=== PATIENT | female | born 1955 | race Caucasian/White ===

== ENCOUNTER 2016-07-03 00:56 | Emergency (ER) | payer OTHER ==
[2016-07-03] MEDS ORDERED: HYDROcod/ACETAM 5/325 MG TABLET PO STA (02:39)
[2016-07-03] MEDS ORDERED: HYDROcod/ACETAM 5/325 MG TABLET ONE (02:41)
== END 2016-07-03 04:18 | disposition home or self-care (01) ==
DX: S92.252A Displaced fracture of navicular [scaphoid] of left foot, initial encounter for closed fracture (principal); S20.211A Contusion of right front wall of thorax, initial encounter; M25.511 Pain in right shoulder; W01.0XXA Fall on same level from slipping, tripping and stumbling without subsequent striking against object, initial encounter; Z79.82 Long term (current) use of aspirin
CPT/HCPCS: 71020; 73630; 99283; A9270

== ENCOUNTER 2016-07-11 13:46 | Outpatient (CLI) | payer OTHER | END 2016-07-11 13:47 | disposition home or self-care (01) | DX: Z53.9 Procedure and treatment not carried out, unspecified reason (principal) ==

== ENCOUNTER 2016-10-30 12:05 | Outpatient (CLI) | payer OTHER ==
--- NOTE | 2016-10-31 09:20 | XRAY Report ---
LEFT KNEE, THREE VIEWS: 10/30/2016 CLINICAL HISTORY: Pain. FINDINGS: Calcification is seen in the distal quadriceps tendon. There are at least four small calc ifications noted. This suggests a potential tendinitis or old partial tear. Recommend clinical herlinda elation. If indicated, other studies such as an MRI of the left knee could be obtained. Minimal medial joint space narrowing in the left knee is seen. Patella appears normal. IMPRESSION: 1. MINOR OSTEOARTHRITIS OF THE LEFT KNEE. 2. CALCIFICATION IS SEEN IN THE DISTAL QUADRICEPS TENDON. THESE ARE NONSPECIFIC. THEY MAY INDICATE OLD PARTIAL TEAR VERSUS TENDINITIS. IF INDICATED, ADDITIONAL STUDIES SUCH AN MRI OF THE LEFT KNE E COULD BE OBTAINED FOR FURTHER EVALUATION. 3. SUGGESTION OF MINOR OSTEOARTHRITIS OF THE LEFT KNEE. JOB #: [id number] EXT JOB #:[id number]
== END 2016-10-30 12:06 | disposition home or self-care (01) ==
LOC: DI.S 12:05
PROVIDERS: ATTEND Physician Assistant
DX: M17.12 Unilateral primary osteoarthritis, left knee (principal)

== ENCOUNTER 2017-03-21 11:46 | Outpatient (CLI) | payer OTHER ==
--- NOTE | 2017-03-22 11:08 | XRAY Report ---
LEFT HIP AND PELVIS: 03/21/2017 COMPARISON: None. INDICATION: Pain for two months without known injury. TECHNIQUE: Two views of the left hip and pelvis. FINDINGS: Normal alignment. No evidence of acute fracture. No degenerative changes. IMPRESSION: NEGATIVE HIP AND PELVIS. JOB #: [id number] EXT JOB #: [id number] [facility]
== END 2017-03-21 11:47 | disposition home or self-care (01) ==
LOC: DI 11:46
PROVIDERS: ATTEND Physician Assistant
DX: M25.552 Pain in left hip (principal)

== ENCOUNTER 2017-03-21 11:50 | Outpatient (CLI) | payer OTHER ==
--- NOTE | 2017-03-29 08:46 | Mammography Report ---
DATE OF SERVICE: 03/21/2017 EXAMINATION: Bilateral digital screening mammogram 03/21/2017. CLINICAL INDICATION: A 62-year-old with personal history of left breast cancer, status post mastectomy and TRAM flap reconstruction, family history of breast cancer. COMPARISON: 03/15/2016, 01/08/2015, 11/13/2013. TECHNIQUE: Routine CC and MLO projections were obtained of the breasts. FINDINGS: The right breast demonstrate scattered fibroglandular densities. Postoperative changes of the left TRAM flap reconstruction are stable. A few coarse, typically benign calcifications are present. No suspicious masses, clustered microcalcifications, or regions of architectural distortion are identified. IMPRESSION: Benign findings. RECOMMENDATIONS: Routine annual screening unless otherwise clinically indicated. BIRADS 2 - Benign findings. STANDARD QUALIFYING STATEMENTS 1. This examination was reviewed with the aid of Computed-Aided Detection (CAD). 2. A negative or benign imaging report should not delay biopsy if clinically suspicious findings are present. Consider surgical consultation if warranted. More than 5% of cancers are not identified by imaging. 3. Dense breasts may obscure an underlying neoplasm. TD: 03/27/2017 17:00 MTDD
== END 2017-03-21 11:51 | disposition home or self-care (01) ==
LOC: DI 11:50
PROVIDERS: ATTEND Physician Assistant
DX: Z12.31 Encounter for screening mammogram for malignant neoplasm of breast (principal); Z85.3 Personal history of malignant neoplasm of breast; Z80.3 Family history of malignant neoplasm of breast
CPT/HCPCS: 77067

== ENCOUNTER 2018-03-05 14:52 | Emergency (ER) | payer OTHER ==
--- NOTE | 2018-03-05 15:11 | ED Physician Documentation ---
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 : None HEENT: None Psych: Bipolar disorder Musculoskeletal: None Derm: None - Past Surgical History Past Surgical History: Yes Ortho: Spine surgery, Other /TURBOGENERATOR OPERATOR: Mastectomy - Present Medications Home Medications: Ambulatory Orders Medication Instructions Recorded Confirmed Levothyroxine [Synthroid] 75 mcg PO QDAC 03/24/14 01/30/15 Simvastatin 20 mg PO DAILY 03/24/14 01/30/15 Venlafaxine HCl [Venlafaxine HCl 225 mg PO DAILY 03/24/14 01/30/15 ER] clonazePAM [Clonazepam] 1.0 mg PO DAILY 03/24/14 01/30/15 lamoTRIgine [LaMICtal] 300 mg PO DAILY 03/24/14 01/30/15 Aspirin [Aspir 81] 81 mg PO DAILY 01/30/15 01/30/15 Gabapentin [Neurontin] 200 mg PO TID PRN 01/30/15 01/30/15 buPROPion [Wellbutrin Xl] 450 mg PO DAILY 01/30/15 01/30/15 - Allergies Allergies/Adverse Reactions: Allergies Allergy/AdvReac Type Severity Reaction Status Date / Time No Known Drug Allergies Allergy Verified 03/05/18 15:00 - Social History Does the pt smoke?: No Smoking Status: Never smoker Does the pt drink ETOH?: Yes Does the pt have substance abuse?: No - Immunizations Immunizations are current?: Yes - POLST Patient has POLST: No Results - Vitals Vitals: Vital Signs - 24 hr 03/05/18 15:04 Blood Pressure 125/80 [Left] Oxygen O2 Source Room air
--- NOTE | 2018-03-05 16:07 | ED Physician Documentation ---
PD HPI CHEST PAIN - Stated complaint Stated Complaint: CHEST PAINS - Chief complaint Chief Complaint: Cardiac - History obtained from History obtained from: Patient - History of Present Illness Timing - onset: How many days ago (3) Timing - duration: Days (3) Timing - details: Gradual onset, Intermittant Pain level max: 7 Pain level now: 0 Quality: Tightness Location: Other (Upper chest) Radiation: Abdominal Improved by: Nothing. No: Rest Worsened by: Other (Nothing) Associated symptoms: No: Shortness of air, Diaphoresis, Nausea, Vomiting, General Weakness, Palpitations, Cough Similar symptoms before: Has not had sx before Recently seen: Not recently seen - Additional information Additional information: 68-year-old female with history of high cholesterol here with complaint of upper chest discomfort in the past 3 days. Patient states she has sensation of of pressure that is 6/10 but currently 0. She claims to be radiates from mid upper chest to her epigastric area. She states it lasts 20 seconds. She denies any reciprocating factors. Denies any other associated symptoms. Denies any trauma or travel or recent illness. Review of Systems Ten Systems: 10 systems reviewed and negative Constitutional: denies: Fever Cardiac: reports: Chest pain / pressure. 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 : None HEENT: None Psych: Bipolar disorder Musculoskeletal: None Derm: None - Past Surgical History Past Surgical History: Yes Ortho: Spine surgery, Other /CERTIFIED REGISTERED NURSE PRACTITIONER: Mastectomy - Present Medications Home Medications: Ambulatory Orders Medication Instructions Recorded Confirmed Levothyroxine [Synthroid] 75 mcg PO QDAC 03/24/14 01/30/15 RX: Simvastatin 20 mg PO DAILY 03/24/14 01/30/15 RX: clonazePAM [Clonazepam] 1.0 mg PO DAILY 03/24/14 01/30/15 Venlafaxine HCl [Venlafaxine HCl 225 mg PO DAILY 03/24/14 01/30/15 ER] lamoTRIgine [LaMICtal] 300 mg PO DAILY 03/24/14 01/30/15 Aspirin [Aspir 81] 81 mg PO DAILY 01/30/15 01/30/15 Gabapentin [Neurontin] 200 mg PO TID PRN 01/30/15 01/30/15 buPROPion [Wellbutrin Xl] 450 mg PO DAILY 01/30/15 01/30/15 - Allergies Allergies/Adverse Reactions: Allergies Allergy/AdvReac Type Severity Reaction Status Date / Time No Known Drug Allergies Allergy Verified 03/05/18 15:00 - Social History Does the pt smoke?: No Smoking Status: Never smoker Does the pt drink ETOH?: Yes Does the pt have substance abuse?: No - Immunizations Immunizations are current?: Yes - POLST Patient has POLST: No PD ED PE NORMAL - Vitals Vital signs reviewed: Yes - General General: Alert and oriented X 3, No acute distress, Well developed/nourished - HEENT HEENT: Moist mucous membranes, Pharynx benign - Neck Neck: Supple, no meningeal sign, No adenopathy - Cardiac Cardiac: RRR, No murmur - Respiratory Respiratory: No respiratory distress, Clear bilaterally - Abdomen Abdomen: Normal bowel sounds, Soft, Non tender, Non distended - Back Back: No CVA TTP - Derm Derm: Normal color, Warm and dry - Extremities Extremities: No deformity - Neuro Neuro: Alert and oriented X 3 - Psych Psych: Normal mood, Normal affect Results - Vitals Vitals: Vital Signs - 24 hr 03/05/18 03/05/18 15:04 17:43 Heart Rate 88 Respiratory 24 Rate Blood Pressure 117/84 H Blood Pressure 125/80 [Left] O2 Saturation 97 Oxygen O2 Source Room air - EKG (time done) 1502 Rate: Rate (enter#) Rhythm: NSR [place]: Normal Intervals: Normal PA QRS: Normal Ischemia: Other (Nonspecific flat T's) - Labs Labs: Laboratory Tests 03/05/18 03/05/18 03/05/18 15:20 15:20 15:20 WBC 7.3 RBC 4.50 Hgb 14.0 Hct 42.3 MCV 93.9 MCH 31.0 MCHC 33.0 RDW 13.7 Plt Count 213 MPV 7.6 L Neut # (Auto) 5.1 Lymph # (Auto) 1.6 [place] # (Auto) 0.4 Eos # (Auto) 0.1 Baso # (Auto) 0.0 Absolute Nucleated RBC 0.00 Nucleated RBC % 0.0 D-Dimer Sodium 136 Potassium 3.5 Chloride 111 Carbon Dioxide 19 L Anion Gap 6.0 BUN 13 Creatinine 1.0 Estimated GFR (MDRD) 56 L Glucose 108 H Calcium 8.2 L Total Bilirubin 0.5 AST 27 ALT 40 Alkaline Phosphatase 57 Troponin I < 0.04 B-Natriuretic Peptide Total Protein 6.8 Albumin 4.2 Globulin 2.6 Albumin/Globulin Ratio 1.6 Lipase 39 03/05/18 03/05/18 03/05/18 15:20 15:20 17:32 WBC RBC Hgb Hct MCV MCH MCHC RDW Plt Count MPV Neut # (Auto) Lymph # (Auto) [place] # (Auto) Eos # (Auto) Baso # (Auto) Absolute Nucleated RBC Nucleated RBC % D-Dimer < 200.0 L Sodium Potassium Chloride Carbon Dioxide Anion Gap BUN Creatinine Estimated GFR (MDRD) Glucose Calcium Total Bilirubin AST ALT Alkaline Phosphatase Troponin I < 0.04 B-Natriuretic Peptide 37 Total Protein Albumin Globulin Albumin/Globulin Ratio Lipase PD MEDICAL DECISION MAKING - ED course Complexity details: re-evaluated patient, considered differential (ACS, pneumonia, PE, thoracic dissecting aneurysm, GERD, unstable angina), d/w patient ED course: 1723 patient denies any chest pain or shortness of breath. Inform of test results. Agreed to second heart enzyme. 1843 patient wants to go home now. second negative heart enzymes. Denies chest pain or shortness of breath. Discussed outpatient follow-up with a stress test through her primary doctor. Expressed understanding of outpatient workup.Heart score 1. Departure - Departure Disposition: 01 Home, Self Care Clinical Impression: Atypical chest pain Condition: Stable Instructions: ED Chest Pain Atypical Unkn Cause Comments: Call your primary doctor tomorrow for reevaluation and to schedule an outpatient stress test. If worse return to the emergency room.
[2018-03-05 16:18] LABS: BASOPHILS % (AUTO) 0.6 %; EOSINOPHILS # (AUTO) 0.1 10^3/uL (0.0-0.7); LYMPHOCYTES # (AUTO) 1.6 10^3/uL (1.5-3.5); LYMPHOCYTES % (AUTO) 21.7 %; MEAN CORPUSCULAR VOLUME 93.9 fL (81.0-99.0); MEAN PLATELET VOLUME 7.6 fL (7.9-10.8); MONOCYTES # (AUTO) 0.4 10^3/uL (0.0-1.0); MONOCYTES % (AUTO) 5.7 %; NEUTROPHILS # (AUTO) 5.1 10^3/uL (1.5-6.6); PLT - PLATELET COUNT 213 10^3/uL (130-450); RED CELL DISTRIBUTION WIDTH 13.7 % (12.0-15.0); WHITE BLOOD COUNT 7.3 x10^3/uL (4.8-10.8)
[2018-03-05 16:36] LABS: ALBUMIN 4.2 g/dL (3.2-5.5); ALBUMIN/GLOBULIN RATIO 1.6 (1.0-2.2); BILIRUBIN,TOTAL 0.5 mg/dL (0.2-1.0); CALCIUM 8.2 mg/dL (8.5-10.3); TOTAL PROTEIN 6.8 g/dL (6.7-8.2)
--- NOTE | 2018-03-05 16:37 | XRAY Report ---
Reason: chest pain Procedure Date: 03/05/2018 Accession Number: [id number] / [id number] Procedure: XR - Chest 1 View X-Ray CPT Code: 86256 FULL RESULT: EXAM: CHEST RADIOGRAPHY EXAM DATE: 03/05/2018 04:19 PM. CLINICAL HISTORY: Chest pain. COMPARISON: Chest 07/03/2016. TECHNIQUE: 1 view. FINDINGS: Lungs/Pleura: No focal opacities evident. No pleural effusion. No pneumothorax. Mediastinum: Within exam limitations, the cardiomediastinal contour is normal. Old healed left clavicle fracture is noted. There are left axillary clips. IMPRESSION: No evidence of acute thoracic process RADIA
[2018-03-05] MEDS: ASPIRIN CHEW 81 MG TABLET PO STA (17:42)
[2018-03-05 18:53] VITALS: BP 129/86
== END 2018-03-05 18:53 | disposition home or self-care (01) ==
LOC: ED 14:52
DX: R07.89 Other chest pain (principal); Z79.82 Long term (current) use of aspirin; R94.31 Abnormal electrocardiogram [ECG] [EKG]
CPT/HCPCS: 36415; 71045; 80053; 83690; 83880; 84484; 85025; 85379; 93005; 99283; A9270

== ENCOUNTER 2018-04-12 14:02 | Outpatient (CLI) | payer OTHER ==
--- NOTE | 2018-04-15 08:33 | Mammography Report ---
Reason: ENCOUNTER FOR SCREENING MAMMOGRAM FOR MALIGNANT NE Procedure Date: 04/12/2018 Accession Number: [id number] / [id number] Procedure: ANTOINETTE - Screening Mammo w/Noel CPT Code: FULL RESULT: EXAM: Screening Mammo w/Noel DATE: 04/12/2018 2:34 PM CLINICAL HISTORY: Screening encounter. History of melena. He and personal history of left breast cancer status post mastectomy with TRAM flap reconstruction at the age of 40. Family history of breast cancer in the mother at age 60 and a sister at age 45. TECHNIQUE: Bilateral CC and MLO views were obtained. A left laterally exaggerated CC view was obtained COMPARISON: 03/21/2017 through 11/13/2013. FINDINGS: The breasts demonstrate diffuse fatty replacement bilaterally. Postsurgical changes in the left breast are stable. No suspicious masses, clustered microcalcifications, or regions of architectural distortion are identified. IMPRESSION: Benign findings RECOMMENDATION: Routine annual screening unless otherwise clinically indicated. BIRADS CATEGORY 2: Benign findings STANDARD QUALIFYING STATEMENTS: 1. This examination was not reviewed with the aid of Computer-Aided Detection (CAD). 2. A negative or benign imaging report should not preclude biopsy if clinically suspicious findings are present. 3. Dense breasts may obscure an underlying neoplasm. 4. This examination was reviewed with the aid of 3D breast imaging (tomosynthesis).
== END 2018-04-12 14:03 | disposition home or self-care (01) ==
LOC: DI 14:02
PROVIDERS: ATTEND Physician Assistant
DX: Z12.31 Encounter for screening mammogram for malignant neoplasm of breast (principal); Z85.3 Personal history of malignant neoplasm of breast; Z80.3 Family history of malignant neoplasm of breast
CPT/HCPCS: 77063; 77067

== ENCOUNTER 2018-04-12 14:02 | Outpatient (CLI) | payer OTHER ==
--- NOTE | 2018-04-15 09:35 | DEXA Report ---
Reason: OSTEOPOROSIS WITHOUT CURRENT PATHOLOGICAL FRACTURE Procedure Date: 04/12/2018 Accession Number: [id number] / [id number] Procedure: DEX - Dexa Spine and/or Hip CPT Code: FULL RESULT: EXAM: Dexa Spine and/or Hip DATE: 04/12/2018 2:46 PM CLINICAL HISTORY: OSTEOPOROSIS WITHOUT CURRENT PATHOLOGICAL FRACTURE TECHNIQUE: Dual energy x-ray absorptiometry (DXA) was performed on a imbookin (Pogby) System. Regions measured are the AP Spine, femoral neck, and if needed forearm. COMPARISON: None. In accordance with the International Society for Clinical Densitometry (ISCD) guidelines, data from previous exams may be reanalyzed using current recommendations and techniques. This is done to allow a more accurate basis for comparison with the current study. FINDINGS: The data for the lumbar spine is as follows: BMD (g/cm/cm) T-SCORE Z-SCORE REGION L1 1.018 -0.9 0.1 L2 1.064 -1.1 -0.1 L3 1.067 -1.1 -0.1 L4 1.350 1.3 2.3 TOTAL 1.143 -0.3 0.7 NOTE: All evaluable vertebrae are used for classification The data for the hip is as follows: BMD (g/cm/cm) T-SCORE Z-SCORE REGION Neck 0.912 -0.9 0.2 TOTAL 0.981 -0.2 0.6 NOTE: The femoral neck or total proximal femur, whichever is lowest, is used for classification. IMPRESSION: THE WHO CLASSIFICATION BASED ON THE INTERNATIONAL REFERENCE STANDARD IS NORMAL. THE FRACTURE RISK IS NOT INCREASED. RECOMMENDATION: Patients with diagnosis of osteoporosis or osteopenia should have regular bone mineral density assessment. For those eligible for Medicare, routine testing is allowed once every 2 years. Testing frequency can be increased for patients who have rapidly progressing disease or for those who are receiving medical therapy to restore bone mass. COMMENT: World Health Organization (WHO) definitions for osteoporosis and osteopenia: NORMAL BMD: T-score at -1.0 or higher, fracture risk is low OSTEOPENIA BMD: T-score between -1.0 and -2.5, fracture risk is increased. OSTEOPOROSIS BMD: T-score at -2.5 or lower, fracture risk is high. National Osteoporosis Foundation recommends: 1. Obtain adequate dietary calcium (at least 1200 mg per day) and vitamin D (400-800 international units per day). 2. Participate, as appropriate, in regular weightbearing and muscle-strengthening exercise. 3. Avoid tobacco use and reduce alcohol and caffeine intake. 4. For more detailed information see the website at www.NOF.org.
== END 2018-04-12 14:03 | disposition home or self-care (01) ==
LOC: DI 14:02
PROVIDERS: ATTEND Physician Assistant
DX: M81.0 Age-related osteoporosis without current pathological fracture (principal)
CPT/HCPCS: 77080

== ENCOUNTER 2019-02-11 13:57 | Outpatient (CLI) | payer OTHER ==
--- NOTE | 2019-02-11 16:57 | XRAY Report ---
Reason: UNSPECIFIED INJURY OF RIGHT SHOULDER AND UPPER ARM Procedure Date: 02/11/2019 Accession Number: [id number] / [id number] Procedure: XRS - Shoulder 3 View RT CPT Code: FULL RESULT: EXAM: RIGHT SHOULDER RADIOGRAPHY EXAM DATE: 02/11/2019 02:18 PM. CLINICAL HISTORY: UNSPECIFIED INJURY OF RIGHT SHOULDER AND UPPER ARM. COMPARISON: CHEST 1 VIEW 03/05/2018 4:10 PM. TECHNIQUE: 3 views. FINDINGS: Bones: Normal. No fracture or bone lesion. Joints: The glenohumeral and acromioclavicular joints are normal. Soft tissues: The visualized hemithorax is unremarkable. No soft tissue swelling. IMPRESSION: Normal shoulder radiography. RADIA
== END 2019-02-11 13:58 | disposition home or self-care (01) ==
LOC: DI.S 13:57
PROVIDERS: ATTEND Physician Assistant
DX: S49.91XA Unspecified injury of right shoulder and upper arm, initial encounter (principal)

== ENCOUNTER 2019-05-23 11:04 | Outpatient (CLI) | payer OTHER ==
--- NOTE | 2019-06-03 14:05 | Mammography Report ---
Reason: TRAM FLAP LEFT SIDE ROUTINE MAMMO Procedure Date: 05/23/2019 Accession Number: [id number] / [id number] Procedure: ANTOINETTE - Screening Mammo Right w/Noel CPT Code: Final Report FULL RESULT: EXAM: Screening Mammo Right w/Noel DATE: 05/23/2019 11:53 AM CLINICAL HISTORY: Screening encounter. History of nulliparity. Personal history of breast cancer status post left mastectomy. Family history of breast cancer in the mother at the age of 75 and a sister at the age of 45. TECHNIQUE: (R) - Right CC and MLO views were obtained. COMPARISON: 04/04/2018 through 11/13/2013. PARENCHYMAL PATTERN: (A) - The breast(s) demonstrate(s) scattered fibroglandular densities. FINDINGS: There are no suspicious masses, calcifications, or areas of distortion. IMPRESSION: Negative examination. BI-RADS category 1. RECOMMENDATION: (ANNUAL) - Recommend routine annual screening mammography. BI-RADS CATEGORY: (1) - Negative. STANDARD QUALIFYING STATEMENTS: 1. This examination was not reviewed with the aid of Computer-Aided Detection (CAD). 2. A negative or benign imaging report should not preclude biopsy if clinically suspicious findings are present. 3. Dense breasts may obscure an underlying neoplasm. 4. This examination was reviewed with the aid of 3D breast imaging (tomosynthesis).
== END 2019-05-23 11:05 | disposition home or self-care (01) ==
LOC: DI 11:04
DX: Z12.31 Encounter for screening mammogram for malignant neoplasm of breast (principal); Z85.3 Personal history of malignant neoplasm of breast; Z90.12 Acquired absence of left breast and nipple; Z80.3 Family history of malignant neoplasm of breast
CPT/HCPCS: 77063

== ENCOUNTER 2019-10-30 13:45 | Outpatient (CLI) | payer OTHER | END 2019-10-30 13:46 | disposition critical access hospital (66) | LOC: EMS 13:45 | PROVIDERS: ATTEND Surgery | DX: M54.9 Dorsalgia, unspecified (principal); R51 Headache; V80.010A Animal-rider injured by fall from or being thrown from horse in noncollision accident, initial encounter; Y93.52 Activity, horseback riding | CPT/HCPCS: A0425; A0429 ==

== ENCOUNTER 2019-10-30 13:57 | Emergency (ER) | payer OTHER ==
--- NOTE | 2019-10-30 14:12 | ED Physician Documentation ---
History of Present Illness - Stated complaint Stated Complaint: FALL - Chief complaint Chief Complaint: General - History obtained from History obtained from: Patient, EMS - Additonal information Additional information: Patient is brought to the emergency department by EMS after being bucked off her horse onto a grassy surface unpacked ground. Patient states that she landed on her left side and did hit her head, though she did not lose consciousness. She states she has pain wrapping around her flanks and pelvic area. She denies any pain otherwise in her abdomen. No chest pain. No pain that feels like it is in her spine, including no neck pain. Patient denies any lightheadedness or dizziness. She states she takes aspirin and is on a medication for bipolar disorder, but otherwise, is healthy. Patient states incident happened around 1230 this afternoon. Review of Systems Ten Systems: 10 systems reviewed and negative Constitutional: reports: Reviewed and negative Eyes: reports: Reviewed and negative Ears: reports: Reviewed and negative Nose: reports: Reviewed and negative Throat: reports: Reviewed and negative Cardiac: reports: Reviewed and negative Respiratory: reports: Reviewed and negative GI: reports: Reviewed and negative : reports: Reviewed and negative Skin: reports: Reviewed and negative Musculoskeletal: reports: Back pain Neurologic: reports: Headache, Head injury Psychiatric: reports: Reviewed and negative Endocrine: reports: Reviewed and negative Immunocompromised: reports: Reviewed and negative PD PAST MEDICAL HISTORY - Past Medical History Cardiovascular: High cholesterol Respiratory: None Neuro: None Endocrine/Autoimmune: HyPOthyroidism GI: Colon polyps EXCHANGE MECHANIC: Breast cancer : None HEENT: None Psych: Bipolar disorder Musculoskeletal: None Derm: None - Past Surgical History Past Surgical History: Yes Ortho: Spine surgery, Other /EXCHANGE MECHANIC: Mastectomy - Present Medications Home Medications: Ambulatory Orders Medication Instructions Recorded Confirmed Levothyroxine [Synthroid] 75 mcg PO QDAC 03/24/14 01/30/15 Simvastatin 20 mg PO DAILY 03/24/14 01/30/15 Venlafaxine HCl [Venlafaxine HCl 225 mg PO DAILY 03/24/14 01/30/15 ER] clonazePAM [Clonazepam] 1.0 mg PO DAILY 03/24/14 01/30/15 lamoTRIgine [LaMICtal] 300 mg PO DAILY 03/24/14 01/30/15 Aspirin [Aspir 81] 81 mg PO DAILY 01/30/15 01/30/15 Gabapentin [Neurontin] 200 mg PO TID PRN 01/30/15 01/30/15 buPROPion [Wellbutrin Xl] 450 mg PO DAILY 01/30/15 01/30/15 Cyclobenzaprine [Flexeril] 10 mg PO TID PRN #20 tablet 10/30/19 Hydrocodone/Acetaminophen 1 - 2 each PO Q6H PRN #14 tablet 10/30/19 [Hydrocodon-Acetaminophen 5-325] - Allergies Allergies/Adverse Reactions: Allergies Allergy/AdvReac Type Severity Reaction Status Date / Time No Known Drug Allergies Allergy Verified 03/05/18 15:00 - Social History Does the pt smoke?: No Smoking Status: Never smoker Does the pt drink ETOH?: Yes Does the pt have substance abuse?: No - Immunizations Immunizations are current?: Yes - POLST Patient has POLST: No PD ED PE NORMAL - Vitals Vital signs reviewed: Yes - General General: Alert and oriented X 3, No acute distress - HEENT HEENT: PERRL, EOMI, Moist mucous membranes, Other (Patient has a 4 cm diameter area on her right left parietal scalp with approximately 1 cm of elevation. 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, No motor deficit, No sensory deficit, Normal speech Eye Opening: Spontaneous Motor: Obeys Commands Verbal: Oriented GCS Score: 15 - Psych Psych: Normal mood, Normal affect Results - Vitals Vitals: Oxygen O2 Source Room air - Labs Labs: Laboratory Tests 10/30/19 10/30/19 14:35 14:35 WBC 8.1 RBC 4.44 Hgb 14.3 Hct 43.3 MCV 97.5 MCH 32.2 H MCHC 33.0 RDW 12.8 Plt Count 187 MPV 9.3 Neut # (Auto) 6.0 Lymph # (Auto) 1.5 [place] # (Auto) 0.4 Eos # (Auto) 0.1 Baso # (Auto) 0.1 Absolute Nucleated RBC 0.00 Nucleated RBC % 0.0 Sodium 139 Potassium 3.9 Chloride 108 Carbon Dioxide 23 Anion Gap 8.0 BUN 22 H Creatinine 1.0 Estimated GFR (MDRD) 56 L Glucose 103 H Calcium 8.7 Total Bilirubin 0.6 AST 27 ALT 28 Alkaline Phosphatase 49 Total Protein 7.2 Albumin 5.0 Globulin 2.2 Albumin/Globulin Ratio 2.3 H Lipase 53 H - Rads (name of study) CT abd pelvis Radiology: Final report received, EMP read indepedently, See rad report (Final radiologist interpretation: No organ injury, free fluid, or free air. No pelvic fracture or dislocation. Compression deformities of T7-8, [address] head Radiology: Final report received, EMP read indepedently, See rad report (Negative) CT c-spine Radiology: Final report received, EMP read indepedently, See rad report PD MEDICAL DECISION MAKING - ED course Complexity details: reviewed results, re-evaluated patient, considered differential, d/w patient ED course: The patient was worked up with CTs of the head, C-spine, and abdomen/pelvis. The patient CT scans were generally unremarkable, with the exception of compression fractures of indeterminate age at a number of levels of the T-spine and L-spine. The patient did not have any tenderness on her spine, but did have increasing sensation of pain throughout her back and pelvis. She was initially given 0.5 mg of Dilaudid IV, followed by 1 mg of Dilaudid. The patient was still having significant discomfort and so she was ultimately given 30 mg of Toradol IV and 10 mg of morphine, after which she did report feeling much better. I discussed with the patient and her the findings on CT scan. 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 It is unclear whether the compression fractures are associated with this injury or a prior one. We have discussed that these are stable fractures, which may heal completely or become chronic. We have discussed the need to avoid high impact activities such as horseback riding with trotting, and to minimize the risk of a fall which would exacerbate the current fractures. Patient should follow-up with her primary care physician. We have discussed home management of the symptoms, as well as usual indications for return. Departure - Departure Disposition: 01 Home, Self Care Clinical Impression: Animal-rider injured by fall from or being thrown from horse in noncollision accident, initial encounter Compression fx, thoracic spine Qualifiers: Encounter type: initial encounter Thoracic vertebra fracture level: unspecified thoracic vertebra Qualified Code(s): S22.000A - Wedge compression fracture of unspecified thoracic vertebra, initial encounter for closed fracture Condition: Stable Instructions: ED Low Back Pain Injury, ED Fx Comp Vertebral Prescriptions: Cyclobenzaprine [Flexeril] 10 mg PO TID PRN #20 tablet PRN Reason: Spasms Hydrocodone/Acetaminophen [Hydrocodon-Acetaminophen 5-325] 1 - 2 each PO Q6H PRN #14 tablet PRN Reason: pain Comments: The CT scans of your head and neck did not show any internal injuries or fractures. The CT scan of your abdomen and pelvis showed several compression fractures of your thoracic spine, though the age of these fractures is unclear. Many times these fractures become chronic and show chronically as compression fractures on imaging studies. A compression fracture is a stable fracture which does not put you at risk for paralysis. In general, your body will heal he is on its own, but you may have some pain associated with this. You also most likely of strained the connecting ligaments throughout your spine and pelvis which can cause some the pain that you have been having. There is no evidence of internal organ injury or internal bleeding. Please take the medication prescribed, as needed for discomfort, along with ibuprofen to help with inflammation. You may take up to 800 mg of ibuprofen every 8 hours, as needed. Please follow-up with your primary care physician if you do not feel that you have made any improvement in the next 1 to 2 weeks. Discharge Date/Time: 10/30/19 17:24
[2019-10-30] MEDS ORDERED: IOVERSOL 320 100 ML VIAL IVP ONE ×2 (14:20→15:42)
[2019-10-30] MEDS ORDERED: HYDROmorphone 1 MG/ML CARPUJECT IVP STA ×2 (14:24→15:04)
[2019-10-30 14:40] LABS: BASOPHILS # (AUTO) 0.1 10^3/uL (0.0-0.1); BASOPHILS % (AUTO) 0.6 %; EOSINOPHILS # (AUTO) 0.1 10^3/uL (0.0-0.7); EOSINOPHILS % (AUTO) 0.9 %; HGB - HEMOGLOBIN 14.3 g/dL (12.0-16.0); LYMPHOCYTES # (AUTO) 1.5 10^3/uL (1.5-3.5); LYMPHOCYTES % (AUTO) 17.8 %; MEAN CORPUSCULAR HEMOGLOBIN 32.2 pg (27.0-31.0); MEAN CORPUSCULAR VOLUME 97.5 fL (81.0-99.0); MEAN PLATELET VOLUME 9.3 fL (7.9-10.8); MONOCYTES # (AUTO) 0.4 10^3/uL (0.0-1.0); MONOCYTES % (AUTO) 5.3 %; NEUTROPHILS % (AUTO) 73.7 %; PLT - PLATELET COUNT 187 10^3/uL (130-450); RED BLOOD COUNT 4.44 10^6/uL (4.20-5.40); RED CELL DISTRIBUTION WIDTH 12.8 % (12.0-15.0); WHITE BLOOD COUNT 8.1 x10^3/uL (4.8-10.8)
[2019-10-30 14:58] LABS: ALBUMIN/GLOBULIN RATIO 2.3 (1.0-2.2); BILIRUBIN,TOTAL 0.6 mg/dL (0.2-1.0); CALCIUM 8.7 mg/dL (8.5-10.3); TOTAL PROTEIN 7.2 g/dL (6.7-8.2)
[2019-10-30] MEDS ORDERED: KETOROLAC 30 MG/ML VIAL IVP STA (15:45)
--- NOTE | 2019-10-30 15:46 | CT Report ---
PROCEDURE: HEAD WO INDICATIONS: Trauma, thrown from horse, scalp injury TECHNIQUE: Noncontrast 4.5 mm thick angled axial sections acquired from the foramen magnum to the vertex. For r adiation dose reduction, the following was used: automated exposure control, adjustment of mA and/or kV according to patient size. COMPARISON: None. FINDINGS: Image quality: Excellent. CSF spaces: Basal cisterns are patent. No extra-axial fluid collections. Ventricles are normal in size and shape. Brain: No midline shift. No intracranial masses or hemorrhage. Mckeon-white matter interface is norm al. Skull and face: Calvarium and visualized facial bones are intact, without suspicious lesions. There is a left parietal region mixed density scalp hematoma. Sinuses: Visualized sinuses and mastoids are clear. IMPRESSION: No acute intracranial finding. Left parietal scalp hematoma. Reviewed by: Jimmy Dwyer MD on 10/30/2019 3:45 PM PDT Approved by: Jimmy Dwyer MD on 10/30/2019 3:45 PM PDT Station ID: [id number]
--- NOTE | 2019-10-30 15:49 | CT Report ---
PROCEDURE: CERVICAL SPINE WO INDICATIONS: Trauma, thrown from horse, head injury TECHNIQUE: Noncontrast 3 mm thick sections acquired from the skull base to the T4 level. Sagittal and coronal r eformats were then constructed. For radiation dose reduction, the following was used: automated exp osure control, adjustment of mA and/or kV according to patient size. COMPARISON: FINDINGS: Image quality: Excellent. Bones: No cervical spine fracture, dislocation, or subluxation. Facet joints are congruent with multi level degenerative changes. Intervertebral disc spaces are congruent with multilevel degenerative elliot nges. Vertebral body heights maintained. Soft tissues: Unenhanced prevertebral and paraspinous soft tissues unremarkable. No unenhanced eviden ce of epidural hematoma. Included portions of the lung apices and apical pleural spaces are clear. IMPRESSION: No CT evidence of acute or metastatic cervical spine injury. Reviewed by: Jimmy Dwyer MD on 10/30/2019 3:47 PM PDT Approved by: Jimmy Dwyer MD on 10/30/2019 3:47 PM PDT Station ID: [id number]
--- NOTE | 2019-10-30 16:03 | CT Report ---
PROCEDURE: Abdomen/Pelvis W INDICATIONS: thrown from horse, pelvic pain CONTRAST: IV CONTRAST: Optiray 320 ml: 100 PO CONTRAST: *NO PO CONTRAST TECHNIQUE: After the administration of oral and intravenous contrast, 5 mm thick sections acquired from the diap hragms to the symphysis. 5 mm thick coronal and sagittal reformats were acquired. For radiation dos e reduction, the following was used: automated exposure control, adjustment of mA and/or kV accordin g to patient size. COMPARISON: Pelvic radiograph dated 03/21/2017. FINDINGS: Image quality: Excellent. ABDOMEN: Lung bases: Bilateral dependent atelectasis is seen. Heart size is normal. Solid organs: Liver and spleen are normal in size and enhancement. Well-circumscribed 5 mm round hy podense area in the right hepatic lobe anterior segment is seen and likely represent small hepatic cy st. Gallbladder is within normal limits. Biliary system is non dilated. Pancreas enhances normally. No right adrenal nodules. 2.6 x 1.7 cm predominantly fat density left adrenal nodule is seen most c onsistent with benign adrenal adenoma. Kidneys demonstrate normal size and enhancement, without hydro nephrosis. Peritoneum and bowel: Bowel loops demonstrate normal wall thickness and caliber. No free fluid or a ir. Mild fecal stasis throughout the colon is seen. Colonic diverticulosis is noted, no CT evidence of acute diverticulitis. Nodes and vessels: No retroperitoneal or mesenteric adenopathy by size criteria. Aorta and inferior vena cava are normal in size. Miscellaneous: No ventral hernias. PELVIS: Genitourinary: Bladder wall thickness is normal. Miscellaneous: No inguinal hernias or adenopathy. Bones: There is no acute pelvic fracture or dislocation. Pelvic ring is intact. Age-indeterminate ant erior wedge compression deformity at T12 level is seen with up to 50% loss of T12 vertebral body ante riorly. Age indeterminant anterior wedge compression deformity at T7, T8, and T10 levels also seen wi th up to 40% loss of vertebral body height anteriorly. Degenerative endplate changes and bilateral fa cet arthrosis throughout thoracic and lumbar spine is seen. IMPRESSION: 1. No acute solid organ injury within abdomen or pelvis. No free fluid or free air. 2. No acute pelvic fracture or dislocation. No evidence of avascular necrosis of femoral head. 3. Age-indeterminate anterior wedge compression deformities involving T7, T8, T10 and T12 vertebral b odies with up to 50% loss of T12 vertebral body height anteriorly. 4. Suggestion of benign adrenal adenoma in left adrenal gland as above. 5. Likely benign cyst measuring 5 mm in right hepatic lobe. Reviewed by: Cortez Garnica MD on 10/30/2019 4:01 PM PDT Approved by: Cortez Garnica MD on 10/30/2019 4:01 PM PDT Station ID: [id number]
[2019-10-30] MEDS ORDERED: MORPHINE 10 MG/ML VIAL IVP STA (16:13)
[2019-10-30 17:27] VITALS: BP 138/72
== END 2019-10-30 17:24 | disposition home or self-care (01) ==
LOC: EDUNIT# → ED 13:57
DX: S22.060A Wedge compression fracture of T7-T8 vertebra, initial encounter for closed fracture (principal); S22.070A Wedge compression fracture of T9-T10 vertebra, initial encounter for closed fracture; S22.080A Wedge compression fracture of T11-T12 vertebra, initial encounter for closed fracture; S00.03XA Contusion of scalp, initial encounter; V80.010A Animal-rider injured by fall from or being thrown from horse in noncollision accident, initial encounter; Y93.52 Activity, horseback riding; Z91.81 History of falling; Z79.82 Long term (current) use of aspirin
CPT/HCPCS: 36415; 70450; 72125; 74177; 80053; 83690; 85025; 96374; 96375; 99284; J1170; Q9967

== ENCOUNTER 2020-01-02 09:15 | Outpatient (CLI) | payer OTHER ==
--- NOTE | 2020-01-02 11:51 | MRI Report ---
PROCEDURE: Thoracic Spine W/O INDICATIONS: RADICULOPATHY, LUMBAR REGION TECHNIQUE: Noncontrast sagittal T1 spine echo and T2 fast spin echo, sagittal STIR, axial T1 and T2 fast spin ec ho through the thoracic spine. COMPARISON: None. FINDINGS: Image quality: Excellent. Alignment and Curvature: There is moderate diffuse thoracic kyphosis. Mild grade 1 anterolisthesis o f T12 on L1. Bone Marrow: Marrow is of normal overall signal. There is mild chronic wedging of T6, T7, and T10. M oderate chronic wedging of T8, T9, T11, and L1. There is moderate wedging of L2 which demonstrates li near low signal intensity within its superior endplate, as well as moderate STIR signal elevation thr oughout the L2 vertebral body. Mild reactive signal throughout the endplates of the mid and lower tho racic spine. Spinal Cord: Visualized spinal cord is normal in size and signal. Paraspinous Soft Tissues: No paravertebral masses. Disc space levels: Multilevel disc desiccation and facet hypertrophy, causing mild multilevel canal a nd foraminal stenoses. No evidence of neural impingement. IMPRESSION: 1. Multilevel degenerative disc and facet disease. 2. Multilevel chronic compression fractures within the thoracic spine. 3. Moderate subacute compression fracture of L2. Reviewed by: Dudley Huitron MD on 01/02/2020 11:50 AM PDT Approved by: Dudley Huitron MD on 01/02/2020 11:50 AM PDT Station ID: [id number]
--- NOTE | 2020-01-02 12:08 | MRI Report ---
PROCEDURE: Lumbar Spine W/O INDICATIONS: RADICULOPATHY, LUMBAR REGION TECHNIQUE: Noncontrast sagittal T1 spin echo and T2 fast echo, sagittal STIR, axial T1 and T2 fast spin echo thr ough the lumbar spine. In cases with scoliosis, additional coronal T2 fast spin echo may be performe d. COMPARISON: CT examination dated 10.30.19. FINDINGS: Image quality: Partially degraded by motion artifact. Alignment and Curvature: There is a transitional element at S1. The numbering system for the current examination will be as denoted on the mike image panel. Recommend correlation with plain films as wel l as the mike image panel for numbering purposes, prior to any lumbar spinal intervention. There is mi ld grade 1 retrolisthesis of L2 on L3, L3 on L4, and L5 on S1. Bone Marrow: Marrow is of normal overall signal. There is moderate wedging of L1 and L2. Mild wedgin g of L4. There is linear low T1 and T2 signal intensity traversing the superior L2 endplate, as well as moderate surrounding ill-defined STIR signal elevation within the L2 vertebral body. There is ill- defined linear low T1 signal intensity within the central and left paramedian aspect of the L4 verteb ral body which demonstrates moderate surrounding STIR signal elevation. There is mild reactive signal within the end but adjacent to the T12-L1, L3-L4, and L5-S1 intervertebral discs. Spinal Cord: Conus medullaris terminates at the upper L2 level. Visualized cord demonstrates normal signal and size. Paraspinous Soft Tissues: No paravertebral masses. T12-L1: Moderate disc height loss and desiccation. Mild diffuse disc bulge. Mild retropulsion at the superior L1 level. Mild facet and ligament flavum hypertrophy. Mild canal stenosis. Mild bilateral f oraminal stenosis. L1-L2: Moderate disc height loss and desiccation. Mild diffuse disc bulge with small superimposed right posterolateral protrusion. Mild facet and ligament flavum hypertrophy. Mild canal stenosis. Mil d right foraminal stenosis. No left foraminal stenosis. L2-L3: Moderate disc height loss and desiccation. Mild diffuse disc bulge. Mild facet and ligament flavum hypertrophy. Mild epidural lipomatosis. Moderate canal stenosis. Mild bilateral foraminal rodrigue nosis. L3-L4: Moderate disc height loss and desiccation. Mild diffuse disc bulge. Mild facet and ligament flavum hypertrophy. Mild epidural lipomatosis. Mild canal stenosis. Mild bilateral foraminal stenosis . L4-L5: Moderate disc height loss and desiccation. Mild diffuse disc bulge. Moderate bilateral facet hypertrophy. Mild ligamentum flavum hypertrophy and epidural lipomatosis. Mild canal stenosis. Mild bilateral foraminal stenosis. L5-S1: Moderate disc height loss and desiccation. Mild diffuse disc bulge. Mild bilateral facet hyp ertrophy. Mild canal stenosis. Mild bilateral foraminal stenosis. IMPRESSION: 1. Moderate subacute L2 compression fracture. 2. Mild subacute L4 compression fracture. 3. Multilevel degenerative disc and facet disease, in addition to epidural lipomatosis and ligamentum flavum hypertrophy. 4. Multilevel canal stenoses, worst at L2-L3, where there is moderate canal stenosis. 5. Mild multilevel foraminal stenoses. 6. Atypical numbering system as described above with transitional anatomy at S1. Recommend correlatio n with the mike image panel and plain films for numbering purposes prior to any lumbar spinal interven tion. Reviewed by: Dudley Huitron MD on 01/02/2020 12:07 PM PDT Approved by: Dudley Huitron MD on 01/02/2020 12:07 PM PDT Station ID: [id number]
== END 2020-01-02 09:16 | disposition home or self-care (01) ==
LOC: DI 09:15
PROVIDERS: ATTEND Nurse Practitioner Family
DX: M51.34 Other intervertebral disc degeneration, thoracic region (principal); M48.54XA Collapsed vertebra, not elsewhere classified, thoracic region, initial encounter for fracture; M48.56XA Collapsed vertebra, not elsewhere classified, lumbar region, initial encounter for fracture; M48.04 Spinal stenosis, thoracic region; M51.16 Intervertebral disc disorders with radiculopathy, lumbar region; M48.061 Spinal stenosis, lumbar region without neurogenic claudication; M40.294 Other kyphosis, thoracic region
CPT/HCPCS: 72146; 72148

== ENCOUNTER 2020-01-27 16:02 | Outpatient (CLI) | payer OTHER ==
--- NOTE | 2020-01-27 18:02 | XRAY Report ---
PROCEDURE: Ribs Bilat w/Chest 4 View INDICATIONS: Pain in thoracic spine TECHNIQUE: 2 views of the right ribs were acquired, along with a single view chest. COMPARISON: None. FINDINGS: Surgical changes and devices: Surgical clips noted in the left axilla.. Bones and chest wall: No fractures or dislocations. No suspicious bony lesions. Overlying soft tis sues appear unremarkable. Lungs and pleura: No pleural effusions or pneumothorax. Lungs appear clear. Mediastinum: Mediastinal contours appear normal. Heart size is normal. IMPRESSION: Chest without acute cardiopulmonary abnormalities. No acute rib fractures identified. Reviewed by: Luis Eduardo Martinez MD on 01/27/2020 6:01 PM PDT Approved by: Luis dEuardo Martinez MD on 01/27/2020 6:01 PM PDT Station ID: [id number]
== END 2020-01-27 16:03 | disposition home or self-care (01) ==
LOC: DI 16:02
PROVIDERS: ATTEND Physician Assistant
DX: M54.6 Pain in thoracic spine (principal)
CPT/HCPCS: 71111

== ENCOUNTER 2020-08-18 09:35 | Outpatient (CLI) | payer MEDICARE ==
--- NOTE | 2020-08-19 12:20 | Mammography Report ---
UNILATERAL RIGHT DIGITAL SCREENING MAMMOGRAM 3D/2D: 08/18/2020 CLINICAL: Routine screening. Personal history of left breast cancer. Comparison is made to exams dated: 05/23/2019 mammogram, 04/12/2018 mammogram, 03/21/2017 mammogram, mammogram, 01/08/2015 mammogram, and 11/13/2013 mammogram - [facility]. The re are scattered fibroglandular elements in right breast. There is a 0.6 cm oval equal density focal asymmetry in the right breast at 9 o'clock middle depth. This is more prominent and increased in size. No other significant masses or calcifications are seen in the breast. IMPRESSION: INCOMPLETE: NEEDS ADDITIONAL IMAGING EVALUATION The 0.6 cm oval equal density focal asymmetry in the right breast resembles a cyst and is indetermina te. Additional views with possible ultrasound are recommended. This exam was interpreted at Station ID: [id number]. NOTE: For mammograms, a report in lay terms will be sent to the patient. Approximately 15% of breast malignancies will not be visualized mammographically. In the management of a palpable breast mass, a negative mammogram must not discourage biopsy of a clinically suspicious lesion. Electronically Signed By: Luis Eduardo Martinez M.D. aty/penrad:08/18/2020 10:42:24 ACR BI-RADS Category 0: Incomplete 3340F PARENCHYMAL PATTERN: (A) - The breast(s) demonstrate(s) scattered fibroglandular densities. BI-RADS CATEGORY: (0) - 0 Mammo and [place] [id number] Immediate follow-up LATERALITY: (R)
== END 2020-08-18 09:36 | disposition home or self-care (01) ==
LOC: DI.N 09:35
PROVIDERS: ATTEND Nurse Practitioner Family
DX: Z12.31 Encounter for screening mammogram for malignant neoplasm of breast (principal); Z08 Encounter for follow-up examination after completed treatment for malignant neoplasm; Z85.3 Personal history of malignant neoplasm of breast; N64.89 Other specified disorders of breast

== ENCOUNTER 2020-08-27 14:46 | Outpatient (CLI) | payer MEDICARE ==
[2020-08-27 15:48] LABS: ALBUMIN 4.4 g/dL (3.2-5.5); ALBUMIN/GLOBULIN RATIO 1.9 (1.0-2.2); BILIRUBIN,TOTAL 0.6 mg/dL (0.2-1.0); CALCIUM 8.6 mg/dL (8.5-10.3); POTASSIUM 3.8 mmol/L (3.5-5.0); TOTAL PROTEIN 6.7 g/dL (6.7-8.2)
[2020-08-27 15:57] LABS: THYROID STIMULATING HORMONE 2.36 uIU/mL (0.34-5.60)
[2020-08-27 16:01] LABS: FERRITIN 74.1 ng/mL (11.0-306.8)
[2020-08-27 21:01] LABS: ESTIMATED AVERAGE GLUCOSE 108 mg/dL (70-100); HEMOGLOBIN A1c% 5.4 % (4.27-6.07)
== END 2020-08-27 14:47 | disposition home or self-care (01) ==
LOC: LAB 14:46
PROVIDERS: ATTEND Nurse Practitioner Family
DX: E83.51 Hypocalcemia (principal); R73.01 Impaired fasting glucose; E03.9 Hypothyroidism, unspecified; G25.81 Restless legs syndrome
CPT/HCPCS: 36415; 80053; 82728; 83036; 83540; 84443; 84466